=== PATIENT | male | born 1950 | race Caucasian/White ===

== ENCOUNTER 2018-01-31 12:48 | Inpatient (IN) | payer MEDICARE, OTHER ==
[~2018-01-31] VITALS: Ht 172.7 cm; Wt 78.2 kg
[2018-01-31] VITALS (10 sets, daily range): BP systolic 105–170; BP diastolic 57–81; PULSE 75–126; RESP 15–22; TEMP 96.9–98.2; O2SAT 96–98
[2018-01-31] MEDS ORDERED: ONDANSETRON ODT 4 MG TAB PO ONE (13:00)
[2018-01-31] MEDS ORDERED: SODIUM CHLORIDE 0.9% FLUSH 10 ML FLUSH IVF PRN (13:00)
[2018-01-31] MEDS ORDERED: MORPHINE SULFATE 2 MG/ML SYRINGE IV PUSH ONE (13:00)
[2018-01-31] MEDS ORDERED: NITROGLYCERIN 2% OINT 1 GM PACKET TOP ONE (13:00)
--- NOTE | 2018-01-31 13:04 | PD ---
HPI Chief Complaint: Chest Pain Time Seen by Provider: 12:56 Travel History International Travel<30 days: No Contact w/Intl Traveler<30days: No Traveled to known affect area: No History of Present Illness HPI Patient is visiting from [place]. Patient has a past medical history significant for diabetes hypertension hypercholesterolemia and quadruple bypass. Yesterday he started having chest pain that went away after he uses on nitro. However today he started having this chest tightness unrelieved by 3 of his own nitros, substernal nonradiating, rated an 8 out of 10 until EMS intervene with 2 nitroglycerin and aspirin 325 mg p.o. 1. Now he is pain is down to a 3 out of 10 patient denies any aggravating factors but is alleviated with nitroglycerin. Patient denies any associated factors such as fever, rash, nausea, vomiting, diarrhea, urgency/frequency/hematuria, abdominal pain flank pain back pain or headache. PFSH Social History Tobacco Use: No Allergies-Medications (Allergen,Severity, Reaction): Coded Allergies: tramadol (Verified Adverse Reaction, Mild, 01/31/18) Review of Systems General / Constitutional: No: Fever Eyes: No: Visual changes HENT: No: Headaches Cardiovascular: Positive: Chest Pain or Discomfort Respiratory: No: Shortness of Breath Gastrointestinal: No: Abdominal Pain Genitourinary: No: Dysuria Musculoskeletal: No: Pain Skin: No Rash Neurologic: No: Weakness Psychiatric: No: Depression Endocrine: No: Polydipsia Hematologic/Lymphatic: No: Easy Bruising Physical Exam Narrative GENERAL: SKIN: Warm and dry. HEAD: Atraumatic. Normocephalic. EYES: Pupils equal and round. No scleral icterus. No injection or drainage. ENT: No nasal bleeding or discharge. Mucous membranes pink and moist. NECK: Trachea midline. No JVD. CARDIOVASCULAR: Regular rate and rhythm. RESPIRATORY: No accessory muscle use. Clear to auscultation. Breath sounds equal bilaterally. GASTROINTESTINAL: Abdomen soft, non-tender, nondistended. MUSCULOSKELETAL: Extremities without clubbing, cyanosis, or edema. No obvious deformities. NEUROLOGICAL: Awake and alert. No obvious cranial nerve deficits. Motor grossly within normal limits. Five out of 5 muscle strength in the arms and legs. Normal speech. PSYCHIATRIC: Appropriate mood and affect; insight and judgment normal. Data Data Last Documented VS Vital Signs Date Time Temp Pulse Resp B/P (MAP) Pulse Ox O2 Delivery O2 Flow Rate FiO2 01/31/18 14:09 99 21 114/59 (77) 96 Room Air 01/31/18 12:55 98.1 Orders Orders Electrocardiogram (01/31/18 12:56) Ckmb (Isoenzyme) Profile (01/31/18 12:56) Complete Blood Count With Diff (01/31/18 12:56) Comprehensive Metabolic Panel (01/31/18 12:56) Prothrombin Time / Inr (Pt) (01/31/18 12:56) Act Partial Throm Time (Ptt) (01/31/18 12:56) Troponin I (01/31/18 12:56) Lipase (01/31/18 12:56) Chest, Single Ap (01/31/18 12:56) Ecg Monitoring (01/31/18 12:56) Iv Access Insert/Monitor (01/31/18 12:56) Oximetry (01/31/18 12:56) Oxygen Administration (01/31/18 12:56) Nitroglycerin 2% Oint (Nitroglycerin 2% (01/31/18 13:00) Sodium Chloride 0.9% Flush (Ns Flush) (01/31/18 13:00) Ondansetron Odt (Zofran Odt) (01/31/18 13:00) Metoprolol Tartrate Inj (Lopressor Inj) (01/31/18 13:15) Sodium Chlor 0.9% 1000 Ml Inj (Ns 1000 M (01/31/18 13:15) Morphine Inj (Morphine Inj) (01/31/18 13:30) CKMB (01/31/18 12:30) CKMB% (01/31/18 12:30) Labs Laboratory Tests Test 01/31/18 12:30 White Blood Count 4.2 TH/MM3 Red Blood Count 4.22 MIL/MM3 Hemoglobin 13.4 GM/DL Hematocrit 39.6 % Mean Corpuscular Volume 94.0 FL Mean Corpuscular Hemoglobin 31.8 PG Mean Corpuscular Hemoglobin Concent 33.8 % Red Cell Distribution Width 14.5 % Platelet Count 181 TH/MM3 Mean Platelet Volume 7.7 FL Neutrophils (%) (Auto) 60.1 % Lymphocytes (%) (Auto) 25.4 % Monocytes (%) (Auto) 9.4 % Eosinophils (%) (Auto) 4.6 % Basophils (%) (Auto) 0.5 % Neutrophils # (Auto) 2.6 TH/MM3 Lymphocytes # (Auto) 1.1 TH/MM3 Monocytes # (Auto) 0.4 TH/MM3 Eosinophils # (Auto) 0.2 TH/MM3 Basophils # (Auto) 0.0 TH/MM3 CBC Comment DIFF FINAL Differential Comment Prothrombin Time 10.2 SEC Prothromb Time International Ratio 1.0 RATIO Activated Partial Thromboplast Time 24.7 SEC Blood Urea Nitrogen 17 MG/DL Creatinine 1.25 MG/DL Random Glucose 190 MG/DL Total Protein 6.4 GM/DL Albumin 3.4 GM/DL Calcium Level 8.3 MG/DL Alkaline Phosphatase 75 U/L Aspartate Amino Transf (AST/SGOT) 12 U/L Alanine Aminotransferase (ALT/SGPT) 19 U/L Total Bilirubin 0.2 MG/DL Sodium Level 142 MEQ/L Potassium Level 4.2 MEQ/L Chloride Level 110 MEQ/L Carbon Dioxide Level 21.9 MEQ/L Anion Gap 10 MEQ/L Estimat Glomerular Filtration Rate 58 ML/MIN Total Creatine Kinase 101 U/L Troponin I LESS THAN 0.02 NG/ML Lipase 175 U/L MDM Medical Decision Making Medical Screen Exam Complete: Yes Emergency Medical Condition: Yes Medical Record Reviewed: Yes Interpretation(s) Pulse ox: Excellent Pleth wave, oximetry on room air reading 97 200 which is within normal limits EKG shows sinus tachycardia 122, normal interval, patient has mild ST depressions on the inferior lateral leads I, aVL, V4, V5 and V6. However there is no concomitant ST elevations noted. Differential Diagnosis STEMI versus non-STEMI versus pneumonia versus pneumothorax versus coronary syndrome Narrative Course CBC shows no leukocytosis, no anemia, normal platelet count, no left shift Coagulation profile is all within normal limits Electrolytes are all within normal limits with the exception of a random glucose of 190 Normal liver function, normal pancreatic functions. First set of cardiac enzymes negative Chest x-ray read by radiologist as negative examination Critical Care Narrative CRITICAL CARE NOTE: With evaluation of the patient, labs, EKG, receipt of radiologic studies, administration of medications, reevaluation the patient and discussion of the patient with the admitting physicians, the total critical care time was [30] minutes. Time to perform other separately billable procedures was not included in the critical care time. Diagnosis Primary Impression: Chest pain rule out NE Admitting Information Admitting Physician Requests: Observation Curtis Jalloh MD Jan 31, 2018 13:04
[2018-01-31] MEDS: METOPROLOL TARTRATE 5 MG/5 ML VIAL IVS SCH ×2 (13:15→13:20)
[2018-01-31] MEDS ORDERED: SODIUM CHLOR 0.9% 1000 ML INJ 1,000 ML IV ONE (13:15)
--- NOTE | 2018-01-31 13:19 | RADRPT ---
EXAM DATE: 01/31/2018 1:17 PM EDT AGE/SEX: 67 years / Male INDICATIONS: Chest pain. CLINICAL DATA: This is the patient's initial encounter. Patient reports that signs and symptoms have been present for 1 day and indicates a pain score of 4/10. MEDICAL/SURGICAL HISTORY: . COPD, CHF, diabetes CABG. COMPARISON: No prior exams available for comparison. FINDINGS: A single AP view of the chest demonstrates the lungs to be symmetrically aerated without evidence of mass, infiltrate or effusion. The cardiomediastinal contours are unremarkable. Osseous structures a re intact. Median sternotomy wires are noted. CONCLUSION: Negative examination. Electronically signed by: Magno Bhatt MD 01/31/2018 1:18 PM EDT
[2018-01-31] MEDS ORDERED: MORPHINE SULFATE 4 MG/ML INJ IV PUSH ONE (13:30)
[2018-01-31 13:54] LABS: AUTOMATED NEUTROPHIL # 2.6 TH/MM3 (1.8-7.7); BASOPHIL % 0.5 % (0.0-2.0); EOSINOPHIL # 0.2 TH/MM3 (0-0.4); EOSINOPHIL % 4.6 % (0.0-4.0); HEMATOCRIT 39.6 % (39.0-51.0); HEMOGLOBIN 13.4 GM/DL (13.0-17.0); LYMPH % 25.4 % (9.0-44.0); LYMPHOCYTE # 1.1 TH/MM3 (1.0-4.8); MEAN CORPUSCULAR HEMOGLOBIN 31.8 PG (27.0-34.0); MEAN CORPUSCULAR HGB CONC 33.8 % (32.0-36.0); MEAN PLATELET VOLUME 7.7 FL (7.0-11.0); MONO % 9.4 % (0.0-8.0); MONOCYTE # 0.4 TH/MM3 (0-0.9); NEUT % 60.1 % (16.0-70.0); PLATELET COUNT 181 TH/MM3 (150-450); RED BLOOD COUNT 4.22 MIL/MM3 (4.50-5.90); RED CELL DISTRIBUTION WIDTH 14.5 % (11.6-17.2); WHITE BLOOD COUNT 4.2 TH/MM3 (4.0-11.0)
[2018-01-31 14:01] LABS: PROTHROMBIN TIME - PATIENT 10.2 SEC (9.8-11.6)
[2018-01-31 14:22] LABS: ALKALINE PHOSPHATASE 75 U/L (45-117); TOTAL BILIRUBIN ADULT 0.2 MG/DL (0.2-1.0); TOTAL PROTEIN 6.4 GM/DL (6.4-8.2); TROPONIN I LESS THAN 0.02 NG/ML (0.02-0.05)
[2018-01-31 14:30] LABS: ALBUMIN 3.4 GM/DL (3.4-5.0); ALT (GPT) 19 U/L (12-78); AST (GOT) 12 U/L (15-37); BICARBONATE 21.9 MEQ/L (21.0-32.0); BLOOD UREA NITROGEN 17 MG/DL (7-18); CALCIUM 8.3 MG/DL (8.5-10.1); CHLORIDE 110 MEQ/L (98-107); CREATININE 1.25 MG/DL (0.60-1.30); GLOMERULAR FILTRATION RATE 58 ML/MIN (>89); GLUCOSE,RANDOM 190 MG/DL (74-106); SODIUM (NA) 142 MEQ/L (136-145)
[2018-01-31] MEDS ORDERED: DOCUSATE SODIUM 100 MG CAP PO PRN (16:30)
[2018-01-31] MEDS ORDERED: NITROGLYCERIN 0.4 MG SL 25 TABS/BTL SL PRN (16:30)
[2018-01-31] MEDS ORDERED: HEPARIN-D5W 25,000 U/250 ML 250 ML IV PRN (16:30)
[2018-01-31] MEDS ORDERED: ALPRAZolam 0.25 MG TAB PO PRN (16:30)
[2018-01-31] MEDS ORDERED: SODIUM CHLORIDE 0.9% FLUSH 10 ML FLUSH IV FLUSH PRN (16:30)
[2018-01-31] MEDS ORDERED: MORPHINE SULFATE 4 MG/ML INJ IV PUSH PRN (16:30)
--- NOTE | 2018-01-31 16:58 | HHI.HP ---
HPI Service [facility] Hospitalists Primary Care Physician Unknown Admission Diagnosis CP R/O OK Diagnoses: Chief Complaint: Chest pain Travel History International Travel<30 Days: No Contact w/Intl Traveler <30 Da: No Traveled to Known Affected Are: No History of Present Illness This is a 67-year-old male with past medical history of CAD status post CABG 4 in 2005, hypertension, hyperlipidemia and insulin-dependent diabetes mellitus who presents to [facility] complaining of worsening chest pain which started this morning. The patient states that since yesterday he has been experiencing chest pain at rest. The patient states that yesterday he got a substernal pressure-like chest pain which subsided after taking his sublingual nitroglycerin. The patient states that he woke up and was feeling well, went to sit up in a chair when he starting having a severe 10/10 substernal nonradiating chest pain described as a dull pain which was not relieved by taking sublingual nitroglycerin 3. As per ID recommendation EMS gave 2 sublingual nitroglycerin and aspirin 325 mg p.o. 1 and the pain went down to 3 out of 10. The patient denies any inciting, alleviating or aggravating factors. The patient otherwise denies any nausea, vomiting, diarrhea, dysuria, abdominal pain, flank pain, headache, palpitations. At the moment of my interview the patient is chest pain-free. Review of Systems As per HPI, other systems reviewed by me and negative. Past Family Social History Past Medical History 1. CAD status post CABG 4 in 2005. 2. Hypertension. 3. Hyperlipidemia. 4. Insulin-dependent diabetes mellitus. Past Surgical History 1. Right knee surgery for Lee-Schlatter disease. 2. Rhinoplasty. Reported Medications Current Medications Medications (Trade) Dose Ordered Sig/Devin Route Start Time Stop Time Status Last Admin (NS Flush) 2 ml UNSCH PRN IVF 01/31/18 13:00 (NS Flush) 2 ml BID IV FLUSH 01/31/18 21:00 UNV (NS Flush) 2 ml UNSCH PRN IV FLUSH 01/31/18 16:30 UNV (Ecotrin Ec) 325 mg DAILY PO 02/01/18 09:00 UNV (Nitrostat Sl) 0.4 mg Q5M PRN SL 01/31/18 16:30 UNV (Morphine Inj) 2 mg Q30M PRN IV PUSH 01/31/18 16:30 UNV (Tylenol) 650 mg Q6H PRN PO 01/31/18 16:30 UNV (Colace) 100 mg BID PRN PO 01/31/18 16:30 UNV (Xanax) 0.25 mg Q8H PRN PO 01/31/18 16:30 UNV Heparin Sodium/ Dextrose 250 ml @ 0 mls/hr TITRATE PRN IV 01/31/18 16:30 UNV Allergies: Coded Allergies: tramadol (Verified Adverse Reaction, Mild, 01/31/18) Active Ordered Medications Current Medications Medications (Trade) Dose Ordered Sig/Devin Route Start Time Stop Time Status Last Admin (NS Flush) 2 ml UNSCH PRN IVF 01/31/18 13:00 (NS Flush) 2 ml BID IV FLUSH 01/31/18 21:00 UNV (NS Flush) 2 ml UNSCH PRN IV FLUSH 01/31/18 16:30 UNV (Ecotrin Ec) 325 mg DAILY PO 02/01/18 09:00 UNV (Nitrostat Sl) 0.4 mg Q5M PRN SL 01/31/18 16:30 UNV (Morphine Inj) 2 mg Q30M PRN IV PUSH 01/31/18 16:30 UNV (Tylenol) 650 mg Q6H PRN PO 01/31/18 16:30 UNV (Colace) 100 mg BID PRN PO 01/31/18 16:30 UNV (Xanax) 0.25 mg Q8H PRN PO 01/31/18 16:30 UNV Heparin Sodium/ Dextrose 250 ml @ 0 mls/hr TITRATE PRN IV 01/31/18 16:30 UNV Family History Patient states his father due to an OK at age 63 as well as his mother who of an OK at age 68. Social History The patient is a former smoker, he quit smoking 15 years ago. The patient denies alcohol intake. The patient states that he smokes marijuana. Physical Exam Vital Signs Vital Signs Date Time Temp Pulse Resp B/P (MAP) Pulse Ox O2 Delivery O2 Flow Rate FiO2 01/31/18 15:38 84 18 139/63 (88) 97 Room Air 01/31/18 14:09 99 21 114/59 (77) 96 Room Air 01/31/18 13:04 96 Room Air 01/31/18 12:55 136 Room Air 01/31/18 12:55 98.1 126 22 105/57 (73) 96 Physical Exam GENERAL: This is a well-nourished, well-developed patient, in no apparent distress. SKIN: No rashes, ecchymoses or lesions. Cool and dry. HEAD: Atraumatic. Normocephalic. No temporal or scalp tenderness. EYES: Pupils equal round and reactive. Extraocular motions intact. No scleral icterus. No injection or drainage. ENT: Nose without bleeding, purulent drainage or septal hematoma. Throat without erythema, tonsillar hypertrophy or exudate. Uvula midline. Airway patent. NECK: Trachea midline. No JVD or lymphadenopathy. Supple, nontender, no meningeal signs. CARDIOVASCULAR: Regular rate and rhythm without murmurs, gallops, or rubs. RESPIRATORY: Clear to auscultation. Breath sounds equal bilaterally. No wheezes , rales, or rhonchi. GASTROINTESTINAL: Abdomen soft, non-tender, nondistended. No hepato-splenomegaly , or palpable masses. No guarding. MUSCULOSKELETAL: Extremities without clubbing, cyanosis, or edema. No joint tenderness, effusion, or edema noted. No calf tenderness. Negative Homans sign bilaterally. NEUROLOGICAL: Awake and alert. Cranial nerves II through XII intact. Motor and sensory grossly within normal limits. Five out of 5 muscle strength in all muscle groups. Normal speech. Laboratory Laboratory Tests Test 01/31/18 12:30 White Blood Count 4.2 Red Blood Count 4.22 Hemoglobin 13.4 Hematocrit 39.6 Mean Corpuscular Volume 94.0 Mean Corpuscular Hemoglobin 31.8 Mean Corpuscular Hemoglobin Concent 33.8 Red Cell Distribution Width 14.5 Platelet Count 181 Mean Platelet Volume 7.7 Neutrophils (%) (Auto) 60.1 Lymphocytes (%) (Auto) 25.4 Monocytes (%) (Auto) 9.4 Eosinophils (%) (Auto) 4.6 Basophils (%) (Auto) 0.5 Neutrophils # (Auto) 2.6 Lymphocytes # (Auto) 1.1 Monocytes # (Auto) 0.4 Eosinophils # (Auto) 0.2 Basophils # (Auto) 0.0 CBC Comment DIFF FINAL Differential Comment Prothrombin Time 10.2 Prothromb Time International Ratio 1.0 Activated Partial Thromboplast Time 24.7 Blood Urea Nitrogen 17 Creatinine 1.25 Random Glucose 190 Total Protein 6.4 Albumin 3.4 Calcium Level 8.3 Alkaline Phosphatase 75 Aspartate Amino Transf (AST/SGOT) 12 Alanine Aminotransferase (ALT/SGPT) 19 Total Bilirubin 0.2 Sodium Level 142 Potassium Level 4.2 Chloride Level 110 Carbon Dioxide Level 21.9 Anion Gap 10 Estimat Glomerular Filtration Rate 58 Total Creatine Kinase 101 Creatine Kinase MB 1.7 Troponin I LESS THAN 0.02 Lipase 175 Result Diagram: 01/31/18 1230 01/31/18 1230 Imaging Last Impressions Chest X-Ray 01/31/18 1256 Signed Impressions: CONCLUSION: Negative examination. Caprini VTE Risk Assessment Caprini VTE Risk Assessment: Mod/High Risk (score >= 2) Caprini Risk Assessment Model Point Value = 1 Point Value = 2 Point Value = 3 Point Value = 5 Age 41-60 Minor surgery BMI > 25 kg/m2 Swollen legs Varicose veins or History of unexplained or recurrent spontaneous Oral contraceptives or hormone replacement Sepsis (< 1 month) Serious lung disease, including pneumonia (< 1 month) Abnormal pulmonary function Acute myocardial infarction Congestive heart failure (< 1 month) History of inflammatory bowel disease Medical patient at bed rest Age 61-74 Arthroscopic surgery Major open surgery (> 45 min) Laparoscopic surgery (> 45 min) Malignancy Confined to bed (> 72 hours) Immobilizing plaster cast Central venous access Age >= 75 History of VTE Family history of VTE Factor V Leiden Prothrombin [id number] Lupus anticoagulant Anticardiolipin antibodies Elevated serum homocysteine Heparin-induced thrombocytopenia Other congenital or acquired thrombophilia Stroke (< 1 month) Elective arthroplasty Hip, pelvis, or leg fracture Acute spinal cord injury (< 1 month) Prophylaxis Regimen Total Risk Factor Score Risk Level Prophylaxis Regimen 0-1 Low Early ambulation 2 Moderate Order ONE of the following: *Sequential Compression Device (SCD) *Heparin 5000 units SQ BID 3-4 Higher Order ONE of the following medications: *Heparin 5000 units SQ TID *Enoxaparin/Lovenox 40 mg SQ daily (WT < 150 kg, CrCl > 30 mL/min) *Enoxaparin/Lovenox 30 mg SQ daily (WT < 150 kg, CrCl > 10-29 mL/min) *Enoxaparin/Lovenox 30 mg SQ BID (WT < 150 kg, CrCl > 30 mL/min) AND/OR *Sequential Compression Device (SCD) 5 or more Highest Order ONE of the following medications: *Heparin 5000 units SQ TID (Preferred with Epidurals) *Enoxaparin/Lovenox 40 mg SQ daily (WT < 150 kg, CrCl > 30 mL/min) *Enoxaparin/Lovenox 30 mg SQ daily (WT < 150 kg, CrCl > 10-29 mL/min) *Enoxaparin/Lovenox 30 mg SQ BID (WT < 150 kg, CrCl > 30 mL/min) AND *Sequential Compression Device (SCD) Assessment and Plan Problem List: (1) Unstable angina ICD Code: I20.0 - Unstable angina (2) HTN (hypertension) ICD Code: I10 - Essential (primary) hypertension (3) Hyperlipidemia ICD Code: E78.5 - Hyperlipidemia, unspecified (4) IDDM (insulin dependent diabetes mellitus) ICD Code: E11.9 - Type 2 diabetes mellitus without complications; 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 Concerning for unstable angina. EKG with ST depressions in leads I, aVL and V4. Reviewed by me. Chest x-ray also reviewed by me does not show any acute pulmonary disease. Start on IV heparin, monitor on telemetry, cardiac enzymes and EKGs Cardiology consult Start on a statin and a beta-danny. Check lipid profile. Daily aspirin Placed on SSI with insulin NovoLog, once medication reconciliation form is placed will resume home medications. Check hemoglobin A1c. SCDs for DVT prophylaxis. Code Status Full code Discussed Condition With ED physician, patient. Physician Certification 2 Midnight Certification Type: Admission for Inpatient Services Order for Inpatient Services The services are ordered in accordance with Medicare regulations or non- Medicare payer requirements, as applicable. In the case of services not specified as inpatient-only, they are appropriately provided as inpatient services in accordance with the 2-midnight benchmark. Estimated LOS (days): 2 days is the estimated time the patient will need to remain in the hospital, assuming treatment plan goals are met and no additional complications. Post-Hospital Plan: Home Ramiro Yoo MD Jan 31, 2018 16:58
[2018-01-31] MEDS ORDERED: ATORVASTATIN 10 MG TAB PO SCH (21:00)
[2018-01-31] MEDS: CARVEDILOL 3.125 MG TAB PO SCH (21:24)
[2018-01-31] MEDS: SODIUM CHLORIDE 0.9% FLUSH 10 ML FLUSH IV FLUSH SCH (21:24)
--- NOTE | 2018-01-31 22:53 | MB ---
cc: Alvaro Ryan MD, Arthur W MD DATE: 01/31/2018 HISTORY OF PRESENT ILLNESS: Domingo is a 67-year-old gentleman with history of coronary artery bypass graft in 2007. He presents with a chief complaint of chest pain. He has a history of diabetes, hypertension, hyperlipidemia. The patient's chest pain was initially 8/10, now down to 3/10. Otherwise, denies any fever, chills, cough, GI or bleeding, PND, orthopnea, syncope or dizziness. PAST MEDICAL HISTORY: Per history of present illness. ALLERGIES: TRAMADOL. SOCIAL HISTORY: Denies tobacco use. MEDICATIONS IN THE HOSPITAL: 1. Aspirin 325 daily. 2. Coreg 3.25 b.i.d. 3. Atorvastatin 10 mg at bedtime. 4. Heparin drip. PHYSICAL EXAMINATION: VITAL SIGNS: Blood pressure 170/81, pulse 94, respiratory rate 20, temperature 96.9, sats 98% on room air. GENERAL: He is alert and oriented x3, in no acute distress. NECK: Supple. No JVD. No bruit. CARDIOVASCULAR: S1, S2. No murmurs. No murmurs, rubs or gallops. LUNGS: Clear to auscultation bilaterally. ABDOMEN: Soft, nontender, nondistended with positive bowel sounds. EXTREMITIES: No lower extremity edema. LABORATORIES: Sodium 142, potassium 4.2, chloride 110, bicarbonate 21.9, BUN 17, creatinine 1.25, glucose 190. Initial troponin is less than 0.02, second troponin is 3.10. CK 158. INR is 1.0. IMAGING STUDIES: Chest x-ray negative examination. CARDIOLOGY STUDIES: EKG - sinus tachycardia at 122 beats per minute, small nondiagnostic Q-waves in the inferior leads. ST depression in leads 1 and aVL. DIAGNOSES: 1. [id number] myocardial infarction. 2. Coronary artery disease. 3. Status post coronary artery bypass grafting. 4. Diabetes mellitus. 5. Hyperlipidemia. DISCUSSION: At this point in time, agree with aspirin, heparin, Coreg and Lipitor. I am going to reassess the patient's symptoms. If he is still having chest pain, he will need urgent left heart catheterization this evening. If not, we will plan for tomorrow on 02/01/2018. MD THI Godfrey/ , 09:33 PM , 10:51 PM
[2018-02-01] VITALS (27 sets, daily range): BP systolic 141–177; BP diastolic 74–117; PULSE 70–108; RESP 16–18; TEMP 97–98.7; O2SAT 95–100
[2018-02-01] MEDS ORDERED: MIDAZOLAM HCL 2 MG/2 ML VIAL ONE (00:26)
[2018-02-01] MEDS ORDERED: HEPARIN-NS/PF INJ 1,000 ML ONE (00:26)
[2018-02-01] MEDS ORDERED: HEPARIN SODIUM - IV 10,000 UNITS/10 ML VIAL ONE (00:26)
[2018-02-01 00:28] LABS: CHOLESTEROL 170 MG/DL (120-200); TRIGLYCERIDES 226 MG/DL (42-150)
[2018-02-01 00:31] LABS: CHOLESTEROL/ HDL RATIO 5.61 RATIO; HDL CHOLESTEROL 30.3 MG/DL (40.0-60.0); LDL CHOLESTEROL 95 MG/DL (0-99)
[2018-02-01 00:38] LABS: TROPONIN I 2.54 NG/ML (0.02-0.05)
[2018-02-01] MEDS ORDERED: TIROFIBAN INFUSION INJ 250 ML IV ONE (01:34)
[2018-02-01] MEDS ORDERED: PRASUGREL 10 MG TAB ONE (01:35)
[2018-02-01] MEDS: TIROFIBAN INFUSION INJ 250 ML IV SCH ×2 (01:36→15:55)
--- NOTE | 2018-02-01 01:56 | CATHPROC ---
[facility] HIS Report Study Information Study Number Admission Scheduled Start Study Start [id number] Jan 31 2018 4:32PM 02/01/2018 Feb 01 2018 12:38AM [place] [facility] Cardiac Catheterization Admit Source Facility Department Other [facility] - Machine Maintenance Supervisor Physician and Clinical Staff Initial Alvaro Barnes Diesel Engine Assembler Leslie Hernandez,MARIO Diesel Engine AssemblerMichelle Marcus,MARIO Recorder Na Snyder ,RT(R) Scrub Yana Pendleton,RT(R) Procedures Performed Procedure Location (Site) Vessel Name Angiogram LV LV Ventricle Coronary Angiograms RCA Right Coronary Coronary Angiograms SVG-OM CIRC Coronary Angiograms MCMILLAN MCMILLAN L Heart Cath LV Gram-hand inj. LV LV Ventricle Stent SVG-OM CIRC Wire insertion Fem Art (right) Femoral Art Equipment Time Sports Instructor Description Size Mfg Part Number Used/Scraped [id number] 01:23 [employer] WIRE, ASAHI PROWATER 180CM 180CM Used *[id number] TRANSDUCER, TRUWAVE [id number] 00:44 DRAKE EUGENE * Used W/STOCKCOCK *[id number] [id number] *[id number] *[id number] [id number] *[id number] *[id number] 01:36 DAIG/ST. VAL MEDICAL ANGIOSEAL, FR6 VIP FR 6 Used *[id number] 00:44 Nekted BLANKET,WARM AIR CCL * Used *[id number] 00:44 Nekted PACK, CCL CUSTOM * Used *[id number] 00:44 Ateeda PACER PEN, SKIN DUAL W/ RULER * Used *[id number] 01:28 MEDTRONIC STENT, 3.5 9 INTEGRITY 3.5 9 Used *[id number] 01:32 TapInko MEDICAL 30 TISH INDEFLATOR Used *[id number] 01:24 [employer] MEDICAL SHEATH, FR6.5 PRELUDE 11CM FR 6.5 038ACT Used *[id number] 00:44 [employer] MEDICAL WIRE, 3MMJ .035 180CM 180CM Used *[id number] 00:44 NAMIC MANIFOLD, 4 PORT * Used *[id number] [id number] 01:26 NAMIC TUBING, HIGH PRESSURE 20" 20" Used *4098468 TUBING, PRESSURE INJECTION [id number] 01:24 NAMIC 72" Used 72" *[id number] 00:44 NYCOMED OMNIPAQUE, 350 MG, 150ML 150ML [id number] Used 01:17 NYCOMED OMNIPAQUE, 350 MG, 150ML 150ML [id number] Used 01:17 NYCOMED OMNIPAQUE, 350 MG, 150ML 150ML [id number] Used 01:17 NYCOMED OMNIPAQUE, 350 MG, 150ML 150ML [id number] Used 01:17 NYCOMED OMNIPAQUE, 350 MG, 150ML 150ML [id number] Used 01:17 NYCOMED OMNIPAQUE, 350 MG, 150ML 150ML [id number] Used 01:16 NYCOMED OMNIPAQUE, 350 MG, 50ML 50ML [id number] Used 01:17 NYCOMED OMNIPAQUE, 350 MG, 50ML 50ML [id number] Used [id number] 00:44 TERUMO MEDICAL SHEATH, FR4 TERUMO (10CM) FR 4 Used *[id number] Equipment Model, Serial, Lot Number and Expiration Data Description Model Number Serial Number Lot Number Expiration Date ANGIOSEAL, FR6 [facility] [id number] 09-24-2018 STENT, 3.5 9 INTEGRITY [id number] 06-10-2019 History: Current Medications Medication Dosage/Unit Route Frequency Last Date/Time Taken ASA LIPITOR History: Allergies Allergy Reaction tramadol History: Risk Factors Family History of Hypertension Dyslipidemia Previous MA Previous Heart Failure Premature CAD Yes Yes Yes Yes No Prior PCI Prior CABG Prior CABGDate No Yes 08/25/2007 Cerebrovascular Peripheral Artery Chronic Lung On Dialysis Diabetes Diabetes Therapy Disease Disease Disease No No No No Yes Oral History: Other Current Smoker No Labs Hgb (g/dl) Hct (%) WBC (l/cumm) Platelets (thousands) 11.60-17.00 35.00-51.00 4.00-11.00 150.00-450.00 4.2 39.6 4.2 181 Glucose (mg/dl) BUN (mg/dl) Creatinine (mg/dl) BUN:Creatinine (1:x) 74.00-106.00 7.00-18.00 0.50-1.30 10.00-20.00 190.9 17 1.2 14.2 Na (meq/l) K (meq/l) 136.00-145.00 3.50-5.10 142 4.2 Medication Medication Total Dose (Bolus/Oral) Medication Total Dosage/Unit 1% XYLOCAINE 20 mL AGGRASTAT BOLUS 42 mL EFFIENT 60 mg FENTANYL 50 mcg HEPARIN 6000 units VERSED 1 mg Medications (Bolus/Oral) Medication Time Given Dosage/Unit Administered By Reason VERSED 02/01/2018 1:04:08 AM 1 mg Leslie Hernandez 1 mg VERSED given in lab by Leslie Hernandez RN in Left Wrist via Peripheral IV. Ordered by Alvaro Ryan. FENTANYL 02/01/2018 1:05:09 AM 25 mcg Leslie Hernandez 25 mcg FENTANYL given in lab by Leslie Hernandez RN in Left Wrist via Peripheral IV. Ordered by Alvaro Castillo. 1% XYLOCAINE 02/01/2018 1:06:11 AM 20 mL Alvaro Ryan 20 mL 1% XYLOCAINE given in lab by Alvaro Ryan in Left Wrist via Subcutaneous. Ordered by Alvaro Artis. HEPARIN 02/01/2018 1:23:26 AM 6000 units Leslie Hernandez 6000 units HEPARIN given in lab by Leslie Hernandez RN via Peripheral IV. Ordered by Alvaro Ryan . FENTANYL 02/01/2018 1:24:18 AM 25 mcg Leslie Hernandez 25 mcg FENTANYL given in lab by Leslie Hernandez RN via Peripheral IV. Ordered by Alvaro Ryan. AGGRASTAT BOLUS 02/01/2018 1:36:00 AM 42 mL Leslie Hernandez 42 mL AGGRASTAT BOLUS given in lab by Leslie Hernandez RN via Peripheral IV. Ordered by Karthik Ryan. EFFIENT 02/01/2018 1:45:00 AM 60 mg Leslie Hernandez 60 mg EFFIENT given in lab by Leslie Hernandez RN via Oral. Ordered by Alvaro Ryan. Medication (Drip) Medication Time Given Dosage/Unit Concentration/Unit Diluent (ml) Solution AGGRASTAT DRIP 02/01/2018 1:38:00 AM 0.75 mL/hr 12.5 mL 250 NaCl .9 0.75 mL/hr AGGRASTAT DRIP given in lab by Leslie Hernandez RN via Peripheral IV. Pump/Drip Flow = 15 ml/hr using NaCl .9 with a concentration of 12.5 mL in 250 ml. Ordered by Alvaro Ryan. IV Solutions 02/01/2018 12:58:47 AM 50 mL (IV) NaCl .9 Patient arrived on IV Solutions in Left Wrist via Peripheral IV. Pump/Drip Flow using NaCl .9. NIPRIDE 02/01/2018 1:30:00 AM 50 mcg 50 mcg NIPRIDE given in lab by Alvaro Ryan via Intra-coronary. Ordered by Alvaro Ryan. Initial Case Assessment Cardiovascular HR Rhythm NIBP Chest Pain 81 sr 159/84 0 Edema Present Skin color Skin None Normal Warm Dry Circulatory - Right Pulses Dorsalis Pedis Femoral 2 2 Scale (0,1,2,3,4,d) Circulatory - Left Pulses Dorsalis Pedis Femoral 2 2 Scale (0,1,2,3,4,d) Circulatory - Lower Extremities Color Lower Right Color Lower Left Normal Normal Neurological State Oriented to time-place- Alert Moves all extremities person Respiration - General Respiration Rate SpO2 (%) (B/min) 17 97 Final Case Assessment Cardiovascular HR Rhythm NIBP Chest Pain 81 sr 159/84 0 Edema Present Skin color Skin None Normal Warm Dry Circulatory - Right Pulses Dorsalis Pedis Femoral 2 2 Scale (0,1,2,3,4,d) Circulatory - Left Pulses Dorsalis Pedis Femoral 2 2 Scale (0,1,2,3,4,d) Circulatory - Lower Extremities Color Lower Right Color Lower Left Normal Normal Neurological State Oriented to time-place- Alert Moves all extremities person Respiration - General Respiration Rate SpO2 (%) (B/min) 17 97 Chronological Log Time Study Chronological Log 0:53:22 Patient arrived via Bed. 0:53:26 Patient Name, D.O.B, / Armband Verified By R.N. 0:53:54 MD arrived. 0:58:33 Consent signed by the physician and the patient and verified by the Machine Maintenance Supervisor staff. 0:58:34 Pre-op and post- op instructions given; patient acknowledges understanding of instructions. 0:58:35 Verbal Stimulation=2 Physical Stimulation=2 Airway=2 Respiration=2 TOTAL=8. (0=absent, 1=li mited, 2=present) 0:58:40 Patient has been NPO for More than 6Hrs. 0:58:41 Skin Breakdown- none per patient 0:58:41 Patient Warmer Placed on the Table. 0:58:44 Raina Prominences Protected 0:58:45 IV Warmer Connected To Patient. 0:58:46 A # 18 IV was noted in the Wrist (left). Grade = 0 0:58:47 Patient arrived on IV Solutions in Left Wrist via Peripheral IV. Pump/Drip Flow using NaCl .9. 0:58:48 History and physical on the chart or being dictated. Assessment: Initial Case, HR=81 BPM, Rhythm=sr, IPOM=729/84 mmhg, Chest Pain=0, Edema=None, [place] r=Normal, Skin = Warm, Dry Right Pulses: Chance Ped=2, Femoral=2 Left Pulses: Chance Ped=2, Femoral=2 0:58:48 Lower Right Extremities: Color=Normal Lower Left Extremities: Color=Normal Neurological: State=Alert, Ox3, NAJERA Respiration: Resp=17 B/min, SpO2=97 % Vitals capture started with the following parameters, Patient=Adult, Interval=5 min, Initial Pre iijhu=165 mmHg, 0:59:50 Deflation Rate=5 mmHg, Cuff placed on Left Arm 1:00:25 Reference ECG taken 1:00:27 HR=81 bpm, KDSJ=378/84 mmhg, SpO2=97.0 %, Resp=16 B/min, Pain=0, Teja=10, Epps=2 Time Out. Correct patient, correct procedure, correct physician, labs, allergies, and equipment verified with lab tech 1:04:01 team present. Fire risk assesment completed (see hard stop sheet for coding). Time Out Concu rred by MD and individual staff in procedure. 1:04:01 Pressure channel 1 zeroed. 1:04:08 1 mg VERSED given in lab by Leslie Hernandez, RN in Left Wrist via Peripheral IV. Ordered by Alvaro Ryan. 1:05:09 25 mcg FENTANYL given in lab by Leslie Hernandez, MARIO in Left Wrist via Peripheral IV. Ordered by Alvaro Ryan. 1:05:30 HR=82 bpm, LPXR=234/85 mmhg, SpO2=97.0 %, Resp=15 B/min, Pain=0, Teja=10, Epps=2 1:06:11 20 mL 1% XYLOCAINE given in lab by Shelby, Alvaro in Left Wrist via Subcutaneous. Ordered by Alvaro Ryan. 1:07:40 Access site was Right Femoral Artery. 1:07:45 A wire was inserted via Fem Art (right). 1:07:47 A SHEATH, FR4 TERUMO (10CM) FR 4 was advanced into the Fem Art (right) using the Percutaneou s technique. A JR 4.0 INFINITI CATHETER FR 4 was advanced over a wire. OMNIPAQUE, 350 MG, 150ML 150ML was use d for 1:08:20 injections. 1:08:34 Activated Clotting Time Drawn Recorded Pressure: LV, HR=83, Condition=Condition 1 1:09:37 (Left Ventricle) LV 138/6/15 1:09:45 The LV was manually injected with 10 cc's and visualized. OMNIPAQUE, 350 MG, 150ML 150ML use d. Recorded Pressure: LV, Ao, HR=84, Condition=Condition 1 1:09:54 (Left Ventricle) LV 140/10/15, (Aorta) Ao 135/63/96 1:10:31 HR=86 bpm, BJNK=108/75 mmhg, SpO2=92.0 %, Resp=13 B/min, Pain=0, Teja=10, Epps=2 1:11:18 The RCA was injected and visualized at various angles. OMNIPAQUE, 350 MG, 150ML 150ML used. 1:11:40 ACT (Normal Range 90-180) = 163 1:14:22 The SVG-OM was injected and visualized at various angles. OMNIPAQUE, 350 MG, 150ML 150ML use d. 1:15:24 HR=84 bpm, WTRO=157/80 mmhg, SpO2=94.0 %, Resp=18 B/min 1:15:25 The MCMILLAN was injected and visualized at various angles. OMNIPAQUE, 350 MG, 150ML 150ML used. 1:17:30 Catheter was removed A JL 4.0 INFINITI CATHETER FR 4 was advanced over a wire. OMNIPAQUE, 350 MG, 150ML 150ML was use d for 1:17:32 injections. After removing the current catheter a PIGTAIL ANG. INFINITI CATHETER FR 4 was advanced over a WI RE, 3MMJ .035 1:19:18 180CM 180CM. 1:20:27 HR=89 bpm, JTRB=794/84 mmhg, SpO2=94.0 %, Resp=19 B/min, Pain=0, Teja=10, Epps=2 1:21:28 The LV was injected at 10 cc/sec for a total of 20. OMNIPAQUE, 350 MG, 50ML 50ML used. 1:22:50 Catheter was removed 1:23:26 6000 units HEPARIN given in lab by Leslie Hernandez, RN via Peripheral IV. Ordered by Alvaro Ayoub. A SHEATH, FR6.5 PRELUDE 11CM FR 6.5 was exchanged in the Fem Art (right). This was necessary in order to 1:23:28 accomodate a larger catheter. 1:24:18 25 mcg FENTANYL given in lab by Leslie Hernandez, MARIO via Peripheral IV. Ordered by Alvaro Ryan. A JR 4.0 GUIDE CATHETER FR 6 was advanced over a wire. OMNIPAQUE, 350 MG, 150ML 150ML was used f or 1:25:11 injections. 1:25:32 HR=92 bpm, PHMX=650/72 mmhg, SpO2=92.0 %, Resp=17 B/min 1:27:02 A WIRE, ASAHI PROWATER 180CM 180CM was inserted via Fem Art (right). 1:29:02 Interventional wire has crossed the lesion An STENT, 3.5 9 INTEGRITY 3.5 9 Bare Metal Stent was inserted through a JR 4.0 GUIDE CATHETER FR 6 over a 1:29:39 WIRE, ASAHI PROWATER 180CM 180CM. 1:30:00 50 mcg NIPRIDE given in lab by Alvaro Ryan via Intra-coronary. Ordered by Karthik Ryan. 1:30:27 AH=354 bpm, LUGT=933/81 mmhg, SpO2=93.0 %, Resp=18 B/min, Pain=0, Teja=10, Epps=2 A STENT, 3.5 9 INTEGRITY 3.5 9 was deployed using a 30 TISH INDEFLATOR at 10 atmospheres for 10 s econds in the 1:31:34 SVG-OM. 1:31:40 Delivery device removed 1:33:23 Wire removed 1:33:29 Catheter was removed 1:33:55 Case End (Physician broke scrub) 1:34:03 An injection in the Fem Art (right) was made through the SHEATH, FR6.5 PRELUDE 11CM FR 6.5. 1:35:26 ANGIOSEAL, FR6 VIP FR 6 placement in the Fem Art (right) Assessment: Final Case, HR=81 BPM, Rhythm=sr, ZJUM=605/84 mmhg, Chest Pain=0, Edema=None, Color= Normal, Skin = Warm, Dry Right Pulses: Chance Ped=2, Femoral=2 Left Pulses: Chance Ped=2, Femoral=2 1:35:39 Lower Right Extremities: Color=Normal Lower Left Extremities: Color=Normal Neurological: State=Alert, Ox3, NAJERA Respiration: Resp=17 B/min, SpO2=97 % 1:36:00 42 mL AGGRASTAT BOLUS given in lab by Leslie Hernandez, MARIO via Peripheral IV. Ordered by Alvaro Yao. 1:36:03 PW=310 bpm, OSGP=887/82 mmhg, SpO2=94.0 %, Resp=11 B/min, Pain=0, Teja=10, Epps=2 1:36:38 Catheter(s) removed without difficulty 1:36:44 Sterile dressing applied to site 1:36:44 No case complications noted. 1:36:51 Cine recording checked. 1:36:52 Bedside Report will be given. 1:36:54 Implantable Device card placed in patient's chart. 1:36:58 A Left Heart Cath was performed. 0.75 mL/hr AGGRASTAT DRIP given in lab by Leslie Hernandez, MARIO via Peripheral IV. Pump/Drip Flow = 15 ml/hr using 1:38:00 NaCl .9 with a concentration of 12.5 mL in 250 ml. Ordered by Alvaro Ryan. 1:40:29 AA=288 bpm, KKMU=915/91 mmhg, SpO2=96.0 %, Resp=17 B/min 1:45:00 60 mg EFFIENT given in lab by Leslie Hernandez, MARIO via Oral. Ordered by Alvaro Ryan. 1:45:32 FV=709 bpm, LFAY=947/99 mmhg, SpO2=94.0 %, Resp=21 B/min 1:46:27 Activated Clotting Time Drawn 1:50:56 Patient moved to the [facility] End Study - Contrast Media Used In Study Contrast Total Opened (mL) Total Used (mL) Total Wasted (mL) Omnipaque 100 100 0 End Study - Maximum Contrast Load Max Contrast Load (mL) 341.3 End Study - Radiation Exposure Fluoro Time (minutes) 9.8 End Study - Sheaths Sheaths Pulled By Sheath Hold Time (min) Yana Pendleton End Study - Patient Disposition Complications Transferred To Interventional Outcome No Critical Care Bed successful
[2018-02-01] MEDS ORDERED: PRASUGREL 10 MG TAB PO ONE (02:00)
[2018-02-01] MEDS ORDERED: MISC INFORMATION XX ONE (02:00)
[2018-02-01] MEDS ORDERED: SODIUM CHLORIDE 0.9% FLUSH 10 ML FLUSH IV FLUSH PRN (02:00)
[2018-02-01] MEDS ORDERED: NITROGLYCERIN-D5W 50 MG/250 ML 250 ML ONE (02:04)
[2018-02-01] MEDS ORDERED: NITROGLYCERIN/DEXTROSE 5% 250 ML for chest pain IV PRN (02:30)
[2018-02-01] MEDS ORDERED: NITROGLYCERIN 2% OINT 1 GM PACKET TOPICAL ONE (02:30)
[2018-02-01 04:52] LABS: AUTOMATED NEUTROPHIL # 2.4 TH/MM3 (1.8-7.7); BASOPHIL % 0.7 % (0.0-2.0); EOSINOPHIL # 0.3 TH/MM3 (0-0.4); EOSINOPHIL % 5.5 % (0.0-4.0); HEMATOCRIT 38.3 % (39.0-51.0); LYMPH % 35.8 % (9.0-44.0); LYMPHOCYTE # 1.7 TH/MM3 (1.0-4.8); MEAN CORPUSCULAR HEMOGLOBIN 31.5 PG (27.0-34.0); MEAN CORPUSCULAR HGB CONC 33.9 % (32.0-36.0); MEAN PLATELET VOLUME 7.1 FL (7.0-11.0); MONO % 7.5 % (0.0-8.0); MONOCYTE # 0.4 TH/MM3 (0-0.9); NEUT % 50.5 % (16.0-70.0); PLATELET COUNT 182 TH/MM3 (150-450); RED BLOOD COUNT 4.12 MIL/MM3 (4.50-5.90); RED CELL DISTRIBUTION WIDTH 14.6 % (11.6-17.2); WHITE BLOOD COUNT 4.7 TH/MM3 (4.0-11.0)
[2018-02-01 05:26] LABS: TROPONIN I 1.56 NG/ML (0.02-0.05)
[2018-02-01] MEDS: ACETAMINOPHEN 325 MG TAB PO PRN ×2 (06:09→12:50)
--- NOTE | 2018-02-01 08:41 | MA ---
cc: Alvaro Ryan MD DATE: 02/01/2018 PROCEDURE PERFORMED: Left heart catheterization, left ventriculography, coronary angiography, saphenous vein angiography, MCMILLAN angiography, aortic root angiography, direct PCI bare-metal stent of the ostial SVT to OM. INDICATIONS FOR PROCEDURE: Non-STEMI, [place] Cardiovascular Society class IV angina, diabetes mellitus, coronary artery disease, status post CABG in 2009. The patient was brought to the cardiac catheterization laboratory, prepped and draped in the usual sterile fashion. 10 mL of 1% lidocaine was used to locally anesthetize the right common femoral artery. A 4-Botswanan sheath was placed in the right common femoral artery. A 4-Botswanan JR4 and JL4 catheters and pigtail catheters were used to perform left ventriculography, coronary angiography, saphenous vein angiography, MCMILLAN angiography, aortic root angiography. FINDINGS: LV pressures 140/10-11. EF is 45-50%. The posterior wall and inferior wall is severely hypokinetic to akinetic. Right coronary artery is dominant, has severe diffuse disease in its proximal mid segment. It is occluded in the mid segment. Vein graft to diagonal is occluded at the ostium. Vein graft to right coronary artery is occluded at the ostium. Vein graft to the obtuse marginal vessel has an ostial 80% stenosis. The marginal vessel distal to the graft insertion site is a small vessel, reference vessel diameter 1.5 mm with a proximal 50-60% stenosis. There is retrograde filling back to the AV groove left circumflex, which then fills antegrade to a second obtuse marginal vessel, which again is 1.0-1.5 mm vessel with a long proximal 50% stenosis. The MCMILLAN to LAD is widely patent. The deering LAD beyond the graft insertion site is a small vessel, reference vessel diameter of 1 mm to 1.5 mm. No obvious focal obstruction. Left main coronary artery has no significant disease angiographically. LAD is occluded after the first diagonal artery. The proximal LAD has severe disease up to 80% angiographically, supplies a small first diagonal artery, which is a 0.5 mm reference vessel diameter. No significant obstructive disease. The left circumflex vessel has a 95% stenosis in the proximal segment. It supplies a small 1-1.5 mm obtuse marginal vessel, which itself has ostial proximal disease up to 90%. The 4-Botswanan sheath was exchanged for a 6-Botswanan sheath. 70 units/kg of heparin was given. ACT pending at the time of dictation. A 6-Botswanan JR4 guide, 0.14 [place]rowater guidewire was placed into the vein graft to the OM. The patient was pretreated with 200 mcg intragraft Nipride. I directly stented the ostial vein graft with a 359 Integrity stent, 1 inflation at 12 atmospheres for 20 seconds. Stenosis went from 80% to residual 20% with JESSE 3 flow. I did not want to post-dilate and be overly aggressive as the vein graft was 10 years old and the grafted vessels are very small vessels with severe disease. I was concerned about distal embolization and no reflow particularly given the patient's lack of reserve with a very small LAD and no obvious flow to the right coronary artery with severe hypokinesis of the inferior wall. Also note, that with balloon inflation in the vein graft to the OM, this did reproduce the patient's chest pain that he came to the hospital with. The aortic root angiography revealed a vein graft to the OM, but no other vein grafts. CONCLUSION: 1. Jln-QL-lezckfrki myocardial infarction, culprit 80% stenosis in the ostium of the vein graft to OM. 2. Severe 3-vessel coronary artery disease, right dominant system. 3. 2/4 grafts patent. 4. Mild left ventricular systolic dysfunction, EF of 45%, severe hypokinesis of the inferior wall. 5. Successful PCI bare-metal stent of the ostium of the vein graft to the OM from 80% to 0% with JESSE 3 flow. RECOMMENDATION: Recommend Aggrastat drip per protocol, aspirin 162 mg daily, Prasugrel 60 mg p.o. 10 mg daily for 12-15 months. Treat lipids per NCEP guidelines. If the patient is still having symptoms, could consider PCI of the left circumflex OM; however, this is a relatively small vessel, which would require a long length of stent, which would be high risk for stent thrombosis. I told the patient to definitely followup with his market research analyst in his hometown to also consider possible PCI in the future of this vessel, depending on his symptoms and clinical response to the PCI of the vein graft to the OM. 7. Continue Coreg and start NAKUL inhibitor if clinically tolerated. Alvaro Ryan MD AWC/TL , 01:46 AM , 08:39 AM
[2018-02-01] MEDS: SODIUM CHLORIDE 0.9% FLUSH 10 ML FLUSH IV FLUSH SCH ×4 (09:00→20:55)
[2018-02-01] MEDS ORDERED: ASPIRIN EC 325 MG TABEC PO SCH (09:00)
[2018-02-01] MEDS: CARVEDILOL 3.125 MG TAB PO SCH ×2 (09:39→20:53)
[2018-02-01] MEDS: ASPIRIN 81 MG CHEW TAB PO SCH (09:44)
[2018-02-01 10:19] LABS: HEMOGLOBIN A1C 7.2 % (4.3-6.0)
[2018-02-01] MEDS ORDERED: DEXTROSE 50% IN WATER 50 ML VIAL(D50) IV PUSH PRN (11:15)
[2018-02-01] MEDS ORDERED: GLUCAGON 1 MG/ML VIAL OTHER PRN (11:15)
[2018-02-01] MEDS: INSULIN ASPART SUPPLEMENTAL SCALE SQ SCH ×3 (12:00→20:58)
[2018-02-01] MEDS: INSULIN ASPART 1,000 UNITS/10 ML VIAL SQ SCH ×2 (12:00→17:00)
--- NOTE | 2018-02-01 13:07 | EKG ---
Date Performed: 02/01/2018 Time Performed: 06:19:44 PTAGE: 67 years EKG: Sinus rhythm Lateral T wave changes are nonspecific No significant change Borderline ECG PREVIOUS TRACING : 01/31/2018 21.52 DOCTOR: Natanael Kevin Interpretating Date/Time 02/01/2018 13:07:13
--- NOTE | 2018-02-01 14:28 | EKG ---
Date Performed: 02/01/2018 Time Performed: 08:28:22 PTAGE: 67 years EKG: Sinus rhythm Possible inferior infarct - age undetermined Lateral T wave changes are nonspecific Abnormal ECG PREVIOUS TRACING : 02/01/2018 06.19 Since the previous tracing, no significant change noted DOCTOR: Juan Alba Interpretating Date/Time 02/01/2018 14:25:46
--- NOTE | 2018-02-01 14:36 | EKG ---
Date Performed: 01/31/2018 Time Performed: 21:52:37 PTAGE: 67 years EKG: Sinus rhythm NONSPECIFIC T-WAVE ABNORMALITY BORDERLINE ECG PREVIOUS TRACING : 01/31/2018 12.57 COMPARED TO THE PREVIOUS EKG SINUS TACHYCARDIA IS NO LONGE R PRESENT DOCTOR: Juan Alba Interpretating Date/Time 02/01/2018 14:34:03
--- NOTE | 2018-02-01 15:11 | EKG ---
Date Performed: 01/31/2018 Time Performed: 12:57:32 PTAGE: 67 years EKG: SINUS TACHYCARDIA MODERATE ST DEPRESSION ABNORMAL ECG NO PREVIOUS TRACING DOCTOR: Juan Alba Interpretating Date/Time 02/01/2018 15:10:07
[2018-02-01] MEDS ORDERED: ATORVASTATIN 80 MG TAB PO SCH (21:00)
[2018-02-01] MEDS ORDERED: INSULIN DETEMIR 100 UNITS/ML VIAL SQ SCH (21:00)
--- NOTE | 2018-02-01 23:30 | HHI.PR ---
Subjective Remarks Follow up for NSTEMI. Patient is currently doing well. No acute concerns. Discussed with patient and regarding his diabetes. Encouraged patient to follow up with NV clerk specialist and possibly an Stoker Erector. Objective Vitals Vital Signs Date Time Temp Pulse Resp B/P (MAP) Pulse Ox O2 Delivery O2 Flow Rate FiO2 02/01/18 20:31 98.0 88 16 159/117 (131) 98 02/01/18 18:00 92 02/01/18 17:00 82 02/01/18 16:00 91 02/01/18 15:00 97.4 101 18 165/90 (115) 98 02/01/18 15:00 92 02/01/18 14:00 70 02/01/18 13:00 70 02/01/18 12:00 72 02/01/18 11:00 98.7 96 18 155/86 (109) 95 02/01/18 11:00 85 02/01/18 10:00 100 02/01/18 09:00 102 02/01/18 08:00 94 02/01/18 07:00 85 02/01/18 07:00 82 02/01/18 07:00 97.5 95 16 159/96 (117) 96 02/01/18 06:00 82 02/01/18 05:45 85 02/01/18 05:00 82 02/01/18 04:00 82 02/01/18 04:00 86 16 141/78 (99) 96 02/01/18 04:00 84 02/01/18 03:00 90 02/01/18 02:02 97.9 98 18 177/99 (125) 100 02/01/18 02:00 96 02/01/18 00:00 97.0 83 18 152/74 (100) 97 I/O 02/01/18 02/01/18 02/01/18 02/02/18 02/02/18 02/02/18 07:00 15:00 23:00 07:00 15:00 23:00 Intake Total 480 ml 720 ml Output Total 1525 ml 700 ml Balance -1045 ml 20 ml Intake Oral 480 ml 720 ml Output Urine Total 1525 ml 700 ml Result Diagram: 02/01/18 0441 01/31/18 1230 Imaging Last Impressions Chest X-Ray 01/31/18 1256 Signed Impressions: CONCLUSION: Negative examination. Objective Remarks GENERAL: Alert, Oriented x 3, NAD. SKIN: Warm and dry. HEAD: Normocephalic. EYES: No scleral icterus. No injection or drainage. NECK: Supple, trachea midline. No JVD or lymphadenopathy. CARDIOVASCULAR: Regular rate and rhythm without murmurs, gallops, or rubs. RESPIRATORY: Breath sounds equal bilaterally. No accessory muscle use. GASTROINTESTINAL: Abdomen soft, non-tender, nondistended. MUSCULOSKELETAL: No cyanosis, or edema. BACK: Nontender without obvious deformity. No CVA tenderness. Procedures Cath 1. Xox-TB-kqazrsska myocardial infarction, culprit 80% stenosis in the ostium of the vein graft to OM. 2. Severe 3-vessel coronary artery disease, right dominant system. 3. 2/4 grafts patent. 4. Mild left ventricular systolic dysfunction, EF of 45%, severe hypokinesis of the inferior wall. 5. Successful PCI bare-metal stent of the ostium of the vein graft to the OM from 80% to 0% with JESSE 3 flow. A/P Problem List: (1) Unstable angina ICD Code: I20.0 - Unstable angina (2) HTN (hypertension) ICD Code: I10 - Essential (primary) hypertension (3) Hyperlipidemia ICD Code: E78.5 - Hyperlipidemia, unspecified (4) IDDM (insulin dependent diabetes mellitus) ICD Code: E11.9 - Type 2 diabetes mellitus without complications; Z79.4 - [facility] (current) use of insulin Assessment and Plan Mr. Enrique is a pleasant 67 year old who presented to the hospital due to chest pain and subsequently diagnosed with NSTEMI. He underwent cardiac cath and Bare metal stent placement. NSTEMI - Continue Aggrastat per Job Placement Officer - Continue Aspirin 162mg, Prasugrel 10mg, Lipitor 80mg - Continue Carvedilol 3.125 BID, Diabetes mellitus - Levemir 10 units QHS, Pre-meal insulin as well as sliding scale insulin. - Patient is encouraged to see an tax staff accountant. - Patient takes metformin, Glipizide, Levemir 70 units BID. Apparently he is hypoglycemic sometimes at home. - He probably does not require so much insulin or Glipizide. Full code. Currently on Aggrastat. Roxana Partida DO Feb 01, 2018 23:30
[2018-02-02] VITALS (14 sets, daily range): BP systolic 158; BP diastolic 88–94; PULSE 68–100; RESP 16–20; TEMP 98.5; O2SAT 97–98
[2018-02-02 04:26] LABS: AUTOMATED NEUTROPHIL # 3.2 TH/MM3 (1.8-7.7); BASOPHIL # 0.1 TH/MM3 (0-0.2); BASOPHIL % 1.9 % (0.0-2.0); EOSINOPHIL # 0.2 TH/MM3 (0-0.4); EOSINOPHIL % 3.6 % (0.0-4.0); HEMATOCRIT 41.9 % (39.0-51.0); HEMOGLOBIN 14.2 GM/DL (13.0-17.0); LYMPH % 30.6 % (9.0-44.0); LYMPHOCYTE # 1.8 TH/MM3 (1.0-4.8); MEAN CELL VOLUME 93.5 FL (80.0-100.0); MEAN CORPUSCULAR HEMOGLOBIN 31.8 PG (27.0-34.0); MEAN PLATELET VOLUME 7.4 FL (7.0-11.0); MONO % 9.5 % (0.0-8.0); MONOCYTE # 0.6 TH/MM3 (0-0.9); NEUT % 54.4 % (16.0-70.0); PLATELET COUNT 192 TH/MM3 (150-450); RED BLOOD COUNT 4.48 MIL/MM3 (4.50-5.90); RED CELL DISTRIBUTION WIDTH 14.3 % (11.6-17.2); WHITE BLOOD COUNT 5.8 TH/MM3 (4.0-11.0)
[2018-02-02 04:45] LABS: BICARBONATE 26.3 MEQ/L (21.0-32.0); CALCIUM 8.6 MG/DL (8.5-10.1); CREATININE 1.18 MG/DL (0.60-1.30)
[2018-02-02 04:49] LABS: CHOLESTEROL/ HDL RATIO 5.41 RATIO; HDL CHOLESTEROL 32.7 MG/DL (40.0-60.0)
[2018-02-02] MEDS: CARVEDILOL 3.125 MG TAB PO SCH (08:37)
[2018-02-02] MEDS: ASPIRIN 81 MG CHEW TAB PO SCH (08:37)
[2018-02-02] MEDS: INSULIN ASPART 1,000 UNITS/10 ML VIAL SQ SCH ×2 (08:38→12:00)
[2018-02-02] MEDS: INSULIN ASPART SUPPLEMENTAL SCALE SQ SCH ×2 (08:39→12:00)
[2018-02-02] MEDS: SODIUM CHLORIDE 0.9% FLUSH 10 ML FLUSH IV FLUSH SCH ×2 (08:42)
[2018-02-02] MEDS ORDERED: LISINOPRIL 10 MG TAB PO SCH (09:00)
[2018-02-02] MEDS ORDERED: PRASUGREL 10 MG TAB PO SCH (09:00)
[2018-02-02] MEDS ORDERED: IOHEXOL 350 MG/ML 100 ML BTL (for Cath Lab) OTHER ONE (09:27)
[2018-02-02] MEDS ORDERED: PRAS10TA PO (10:02)
[2018-02-02] MEDS ORDERED: LISI10TA3 PO (10:02)
[2018-02-02] MEDS ORDERED: ATOR80TA45 PO (10:02)
[2018-02-02] MEDS ORDERED: ASPI81 PO (10:02)
[2018-02-02] MEDS ORDERED: CARV3.125 PO (10:02)
--- NOTE | 2018-02-02 10:05 | HHI.DS ---
Discharge Summary Admission Date Jan 31, 2018 at 16:32 Discharge Date: Feb 02, 2018 Admitting Diagnosis CP R/O [place] (1) Unstable angina ICD Code: I20.0 - Unstable angina Diagnosis: Principal (2) HTN (hypertension) ICD Code: I10 - Essential (primary) hypertension Diagnosis: Principal (3) Hyperlipidemia ICD Code: E78.5 - Hyperlipidemia, unspecified Diagnosis: Principal (4) IDDM (insulin dependent diabetes mellitus) ICD Code: E11.9 - Type 2 diabetes mellitus without complications; Z79.4 - prison (current) use of insulin Diagnosis: Principal Procedures Cath 1. Kfr-CS-bqyswegci myocardial infarction, culprit 80% stenosis in the ostium of the vein graft to OM. 2. Severe 3-vessel coronary artery disease, right dominant system. 3. 2/4 grafts patent. 4. Mild left ventricular systolic dysfunction, EF of 45%, severe hypokinesis of the inferior wall. 5. Successful PCI bare-metal stent of the ostium of the vein graft to the OM from 80% to 0% with JESSE 3 flow. Brief History - From Admission This is a 67-year-old male with past medical history of CAD status post CABG 4 in 2005, hypertension, hyperlipidemia and insulin-dependent diabetes mellitus who presents to [facility] complaining of worsening chest pain which started this morning. The patient states that since yesterday he has been experiencing chest pain at rest. The patient states that yesterday he got a substernal pressure-like chest pain which subsided after taking his sublingual nitroglycerin. The patient states that he woke up and was feeling well, went to sit up in a chair when he starting having a severe 10/10 substernal nonradiating chest pain described as a dull pain which was not relieved by taking sublingual nitroglycerin 3. As per ID recommendation EMS gave 2 sublingual nitroglycerin and aspirin 325 mg p.o. 1 and the pain went down to 3 out of 10. The patient denies any inciting, alleviating or aggravating factors. The patient otherwise denies any nausea, vomiting, diarrhea, dysuria, abdominal pain, flank pain, headache, palpitations. At the moment of my interview the patient is chest pain-free. CBC/BMP: 02/02/18 0409 02/02/18 0409 Significant Findings Laboratory Tests Test 01/31/18 12:30 01/31/18 18:41 01/31/18 23:44 02/01/18 04:41 Red Blood Count 4.22 MIL/MM3 (4.50-5.90) 4.12 MIL/MM3 (4.50-5.90) Monocytes (%) (Auto) 9.4 % (0.0-8.0) Eosinophils (%) (Auto) 4.6 % (0.0-4.0) 5.5 % (0.0-4.0) Random Glucose 190 MG/DL (74-106) Calcium Level 8.3 MG/DL (8.5-10.1) Aspartate Amino Transf (AST/SGOT) 12 U/L (15-37) Chloride Level 110 MEQ/L (98-107) Estimat Glomerular Filtration Rate 58 ML/MIN (>89) Troponin I LESS THAN 0.02 NG/ML 3.10 NG/ML (0.02-0.05) 2.54 NG/ML (0.02-0.05) 1.56 NG/ML (0.02-0.05) Creatine Kinase MB 9.9 NG/ML (0.5-3.6) 9.6 NG/ML (0.5-3.6) 6.6 NG/ML (0.5-3.6) Activated Partial Thromboplast Time 40.5 SEC (24.3-30.1) Hemoglobin A1c 7.2 % (4.3-6.0) Triglycerides Level 226 MG/DL (42-150) HDL Cholesterol 30.3 MG/DL (40.0-60.0) Hematocrit 38.3 % (39.0-51.0) Test 02/02/18 04:09 Red Blood Count 4.48 MIL/MM3 (4.50-5.90) Monocytes (%) (Auto) 9.5 % (0.0-8.0) Blood Urea Nitrogen 19 MG/DL (7-18) Random Glucose 138 MG/DL (74-106) Estimat Glomerular Filtration Rate 62 ML/MIN (>89) Triglycerides Level 306 MG/DL (42-150) HDL Cholesterol 32.7 MG/DL (40.0-60.0) PE at Discharge GENERAL: Alert, Oriented x 3, NAD. SKIN: Warm and dry. HEAD: Normocephalic. EYES: No scleral icterus. No injection or drainage. NECK: Supple, trachea midline. No JVD or lymphadenopathy. CARDIOVASCULAR: Regular rate and rhythm without murmurs, gallops, or rubs. RESPIRATORY: Breath sounds equal bilaterally. No accessory muscle use. GASTROINTESTINAL: Abdomen soft, non-tender, nondistended. MUSCULOSKELETAL: No cyanosis, or edema. BACK: Nontender without obvious deformity. No CVA tenderness. Hospital Course Mr. Enrique is a 67 year old male. He came into the hospital secondary to chest pain. Heart cath was performed and stents have been placed as listed above. Patient has done well status post procedure. After the procedure he was on an Aggrastat drip, this has been weaned off now. Cardiology is recommending Effient, aspirin, statin, Coreg, and NAKUL inhibitor as treatments. Patient is symptom-free at this point. After cleared by cardiology he will be medically clear and stable for discharge to home today on treatments as listed. Pt Condition on Discharge: Stable Discharge Disposition: Discharge Home Discharge Time: <= 30 minutes Discharge Instructions DIET: Follow Instructions for: Heart Healthy Diet Activities you can perform: Regular-No Restrictions Follow up Referrals: Cardiology - 2 Weeks PCP Follow-up - 2 Weeks New Medications: Aspirin (Tgt Aspirin) 81 Mg Chw 162 MG PO DAILY for Blood Clot Prevention, #30 EA Atorvastatin (Atorvastatin) 80 Mg Tab 80 MG PO HS for Cholesterol Management, #30 TAB Carvedilol (Coreg) 3.125 Mg Tab 3.125 MG PO BID for Blood Pressure Management, #60 TAB Lisinopril (Lisinopril) 10 Mg Tab 10 MG PO DAILY for Blood Pressure Management, #30 TAB Prasugrel (Effient) 10 Mg Tab 10 MG PO DAILY for Blood Clot Prevention, #30 TAB Adrian Bowie MD Feb 02, 2018 10:04
--- NOTE | 2018-02-02 13:07 | PD.CARD.PN ---
Subjective Subjective Remarks assymptomatic, feels much better Objective Medications Current Medications Medications (Trade) Dose Ordered Sig/Devin Route Start Time Stop Time Status Last Admin (NS Flush) 2 ml UNSCH PRN IVF 01/31/18 13:00 (NS Flush) 2 ml BID IV FLUSH 01/31/18 21:00 02/02/18 08:42 (NS Flush) 2 ml UNSCH PRN IV FLUSH 01/31/18 16:30 (Nitrostat Sl) 0.4 mg Q5M PRN SL 01/31/18 16:30 (Morphine Inj) 2 mg Q30M PRN IV PUSH 01/31/18 16:30 (Tylenol) 650 mg Q6H PRN PO 01/31/18 16:30 02/01/18 12:50 (Colace) 100 mg BID PRN PO 01/31/18 16:30 (Xanax) 0.25 mg Q8H PRN PO 01/31/18 16:30 Heparin Sodium/ Dextrose 250 ml @ 10 mls/hr TITRATE PRN IV 01/31/18 16:30 01/31/18 18:30 (Coreg) 3.125 mg BID PO 01/31/18 21:00 02/02/18 08:37 (NS Flush) 2 ml UNSCH PRN IV FLUSH 02/01/18 02:00 (NS Flush) 2 ml BID IV FLUSH 02/01/18 09:00 02/01/18 20:55 (Aspirin Chew) 162 mg DAILY PO 02/01/18 09:00 02/02/18 08:37 (Effient) 10 mg DAILY PO 02/02/18 09:00 02/02/18 08:37 Nitroglycerin/ Dextrose 250 ml @ 15 mls/hr TITRATE PRN IV 02/01/18 02:30 (Lipitor) 80 mg HS PO 02/01/18 21:00 02/01/18 20:53 (D50w (Vial) Inj) 50 ml UNSCH PRN IV PUSH 02/01/18 11:15 (Glucagon Inj) 1 mg UNSCH PRN OTHER 02/01/18 11:15 (NovoLOG SUPPLEMENTAL SCALE) 1 ACHS SLIDING SCALE SQ 02/01/18 12:00 02/02/18 08:39 (Levemir Inj) 10 units HS SQ 02/01/18 21:00 02/01/18 20:55 (NovoLOG INJ) 5 units TIDAC SQ 02/01/18 12:00 02/02/18 08:38 (Prinivil) 10 mg DAILY PO 02/02/18 09:00 02/02/18 10:35 Vital Signs / I&O Vital Signs Date Time Temp Pulse Resp B/P (MAP) Pulse Ox O2 Delivery O2 Flow Rate FiO2 02/02/18 08:30 98.5 87 20 158/94 (115) 98 02/02/18 06:13 94 02/02/18 05:00 80 02/02/18 04:29 68 02/02/18 04:00 76 02/02/18 04:00 76 16 98 02/02/18 03:00 70 02/02/18 02:00 68 02/02/18 01:00 72 02/02/18 00:00 75 16 158/88 (111) 97 02/02/18 00:00 70 02/02/18 00:00 78 02/01/18 23:00 72 02/01/18 22:00 84 02/01/18 21:00 82 02/01/18 20:31 98.0 88 16 159/117 (131) 98 02/01/18 20:30 87 02/01/18 20:00 108 02/01/18 19:00 90 02/01/18 18:00 92 02/01/18 17:00 82 02/01/18 16:00 91 02/01/18 15:00 97.4 101 18 165/90 (115) 98 02/01/18 15:00 92 02/01/18 14:00 70 I/O 02/01/18 02/01/18 02/01/18 02/02/18 02/02/18 02/02/18 07:00 15:00 23:00 07:00 15:00 23:00 Intake Total 480 ml 720 ml 480 ml Output Total 1525 ml 700 ml 300 ml Balance -1045 ml 20 ml 180 ml Intake Oral 480 ml 720 ml 480 ml Output Urine Total 1525 ml 700 ml 300 ml Laboratory Laboratory Tests Test 02/02/18 04:09 White Blood Count 5.8 TH/MM3 Red Blood Count 4.48 MIL/MM3 Hemoglobin 14.2 GM/DL Hematocrit 41.9 % Mean Corpuscular Volume 93.5 FL Mean Corpuscular Hemoglobin 31.8 PG Mean Corpuscular Hemoglobin Concent 34.0 % Red Cell Distribution Width 14.3 % Platelet Count 192 TH/MM3 Mean Platelet Volume 7.4 FL Neutrophils (%) (Auto) 54.4 % Lymphocytes (%) (Auto) 30.6 % Monocytes (%) (Auto) 9.5 % Eosinophils (%) (Auto) 3.6 % Basophils (%) (Auto) 1.9 % Neutrophils # (Auto) 3.2 TH/MM3 Lymphocytes # (Auto) 1.8 TH/MM3 Monocytes # (Auto) 0.6 TH/MM3 Eosinophils # (Auto) 0.2 TH/MM3 Basophils # (Auto) 0.1 TH/MM3 CBC Comment DIFF FINAL Differential Comment Blood Urea Nitrogen 19 MG/DL Creatinine 1.18 MG/DL Random Glucose 138 MG/DL Calcium Level 8.6 MG/DL Sodium Level 142 MEQ/L Potassium Level 3.8 MEQ/L Chloride Level 106 MEQ/L Carbon Dioxide Level 26.3 MEQ/L Anion Gap 10 MEQ/L Estimat Glomerular Filtration Rate 62 ML/MIN Total Creatine Kinase 99 U/L Triglycerides Level 306 MG/DL Cholesterol Level 177 MG/DL LDL Cholesterol 83 MG/DL HDL Cholesterol 32.7 MG/DL Cholesterol/HDL Ratio 5.41 RATIO Imaging GENERAL: SKIN: Warm and dry. HEAD: Normocephalic. EYES: No scleral icterus. No injection or drainage. NECK: Supple, trachea midline. No JVD or lymphadenopathy. CARDIOVASCULAR: Regular rate and rhythm without murmurs, gallops, or rubs. RESPIRATORY: Breath sounds equal bilaterally. No accessory muscle use. GASTROINTESTINAL: Abdomen soft, non-tender, nondistended. MUSCULOSKELETAL: No cyanosis, or edema. BACK: Nontender without obvious deformity. No CVA tenderness. Assessment and Plan Problem List: (1) NSTEMI (non-ST elevated myocardial infarction) ICD Codes: I21.4 - Non-ST elevation (NSTEMI) myocardial infarction (2) CAD (coronary artery disease) ICD Codes: I25.10 - Atherosclerotic heart disease of [place] coronary artery without angina pectoris (3) Hx of CABG ICD Codes: Z95.1 - Presence of aortocoronary bypass graft (4) HTN (hypertension) ICD Codes: I10 - Essential (primary) hypertension (5) IDDM (insulin dependent diabetes mellitus) ICD Codes: E11.9 - Type 2 diabetes mellitus without complications; Z79.4 - long-term (current) use of insulin (6) Hyperlipidemia ICD Codes: E78.5 - Hyperlipidemia, unspecified Assessment and Plan 1.) CAD - NSTEMI pod # 1 bms to ostial svg to om, assymptomatic, ok to dc from cv standpoint on aspirin, effient (or plavix), coreg, lisinopril and lipitor, patient advised to f[facility] Alvaro Calvin MD Feb 02, 2018 13:07
--- NOTE | 2018-02-02 15:02 | EKG ---
Date Performed: 02/02/2018 Time Performed: 06:10:50 PTAGE: 67 years EKG: Sinus rhythm Possible inferior infarct - age undetermined Lateral ST changes are nonspecific Abnormal ECG PREVIOUS TRACING : 02/01/2018 08.28 DOCTOR: Alvaro Ryan Interpretating Date/Time 02/02/2018 14:58:57
== END 2018-02-02 14:20 | disposition home or self-care (01) | DRG 249 ==
LOC: NEPC 12:48 → NEDA 14:41 → OBSVTOIN 16:32 → N04A 18:03 → HCIS 02-01 01:34
PROVIDERS: ADMIT Hospitalist; ATTEND Hospitalist
PROC: 02703DZ Dilation of Coronary Artery, One Artery with Intraluminal Device, Percutaneous Approach (ICD-10-PCS; principal; 2018-02-01)
PROC: B2151ZZ Fluoroscopy of Left Heart using Low Osmolar Contrast (ICD-10-PCS; 2018-02-01)
PROC: B2111ZZ Fluoroscopy of Multiple Coronary Arteries using Low Osmolar Contrast (ICD-10-PCS; 2018-02-01)
PROC: 4A023N7 Measurement of Cardiac Sampling and Pressure, Left Heart, Percutaneous Approach (ICD-10-PCS; 2018-02-01)
PROC: B2131ZZ Fluoroscopy of Multiple Coronary Artery Bypass Grafts using Low Osmolar Contrast (ICD-10-PCS; 2018-02-01)
PROC: B3101ZZ Fluoroscopy of Thoracic Aorta using Low Osmolar Contrast (ICD-10-PCS; 2018-02-01)
DX: I21.4 Non-ST elevation (NSTEMI) myocardial infarction (principal); E11.649 Type 2 diabetes mellitus with hypoglycemia without coma; I25.810 Atherosclerosis of coronary artery bypass graft(s) without angina pectoris; I10 Essential (primary) hypertension; E78.5 Hyperlipidemia, unspecified; I25.10 Atherosclerotic heart disease of native coronary artery without angina pectoris; F12.90 Cannabis use, unspecified, uncomplicated; Z79.4 Long term (current) use of insulin; Z82.49 Family history of ischemic heart disease and other diseases of the circulatory system; Z95.1 Presence of aortocoronary bypass graft; Z87.891 Personal history of nicotine dependence; Z88.5 Allergy status to narcotic agent
CPT/HCPCS: 71045; 80048; 80053; 80061; 82550; 82552; 82948; 83036; 83690; 84484; 85002; 85025; 85610; 85730; 93005; 93458; 93567; 99152; 99153; C1760; C1769; C1876; C1887; C1893; G0269; J1644; J1815; J2250; J2270; J3010; J3246; J7030; Q9967